=== PATIENT | male | born 1965 | race Two or more races ===

== ENCOUNTER 2020-01-20 13:54 | Emergency (ER) | payer OTHER, SELFPAY ==
[~2020-01-20] VITALS: Ht 162.6 cm; Wt 73.5 kg
[2020-01-20 13:55] VITALS: Ht 162.6 cm; Wt 73.5 kg
[2020-01-20 14:59] VITALS: BP 140/89
== END 2020-01-20 14:59 | disposition home or self-care (01) ==
LOC: ED 13:54
DX: B34.9 Viral infection, unspecified (principal); Z20.828 Contact with and (suspected) exposure to other viral communicable diseases; E03.9 Hypothyroidism, unspecified
CPT/HCPCS: U0003-CS